=== PATIENT | male | born 1970 | race Caucasian/White ===

== ENCOUNTER 2021-10-11 10:41 | Observation (INO) ==
[2021-10-11] MEDS ORDERED: Naloxone 0.4 MG/ML INJ IVP PRN (11:36)
[2021-10-11] MEDS ORDERED: Ondansetron 4 MG/2 ML VIAL IVP PRN (11:36)
[2021-10-11] MEDS: 0.9 % Sodium Chloride 1,000 ML IVC SCH ×2 (15:59→23:57)
[2021-10-11] MEDS: cefTRIAXone 1,000 MG in 0.9 % Sodium Chloride 10 ML IVP SCH (16:01)
[2021-10-12 05:59] LABS: Basophils % 0.5 %; Eosinophils # 0.5 K/mcL (0.0-0.6); Eosinophils % 7.9 %; Hematocrit 45.4 % (37.5-50.1); Hemoglobin 15.5 g/dL (12.9-16.9); Immature Granulocytes % 0.3 % (0-4); Lymphocytes # 1.6 K/mcL (0.6-4.6); Lymphocytes % 23.9 %; Mean Corpuscular HGB Conc 34.1 g/dL (31.6-35.5); Mean Corpuscular Hemoglobin 29.7 pg (28.0-33.3); Monocytes # 0.5 K/mcL (0.0-1.3); Monocytes % 7.6 %; Platelet Count 153 K/mcL (140-400); Red Blood Count 5.22 M/mcL (4.19-5.50); Red Cell Distribution Width 13.2 % (11.5-14.5); Segmented Neutrophils % 59.8 %; White Blood Count 6.6 K/mcL (4.3-11.1)
[2021-10-12 06:32] LABS: BUN/Creatinine Ratio 13 (6-26); Blood Urea Nitrogen 14 mg/dL (6-20); Calcium 8.5 mg/dL (8.6-10.3); Carbon Dioxide 25 mEq/L (23-29); Chloride 109 mEq/L (98-107); Glucose 86 mg/dL (70-105); Osmolality,Calculated 292 (280-300); Potassium 3.9 mEq/L (3.5-5.1); Sodium 141 mEq/L (136-145); eGFR For African Americans > 60 (> 60); eGFR For Non-African Americans > 60 (> 60)
[2021-10-12] MEDS: 0.9 % Sodium Chloride 1,000 ML IVC SCH ×2 (08:09→15:07)
[2021-10-12] MEDS: cefTRIAXone 1,000 MG in 0.9 % Sodium Chloride 10 ML IVP SCH (08:10)
[2021-10-12] MEDS ORDERED: Ondansetron 4 MG/2 ML VIAL IVP PRN (09:12)
[2021-10-12] MEDS ORDERED: *HR* FentaNYL (PF) 100 MCG/2 ML VIAL IVP PRN (09:12)
[2021-10-12] MEDS ORDERED: Lidocaine -MPF 2% 5 ML VIAL ONE (09:22)
[2021-10-12] MEDS ORDERED: Ondansetron 4 MG/2 ML VIAL ONE (09:22)
[2021-10-12] MEDS ORDERED: *HR* Propofol 200 MG/20 ML VIAL IVP ONE (09:23)
[2021-10-12] MEDS ORDERED: *HR* FentaNYL (PF) 100 MCG/2 ML VIAL ONE ×2 (09:23→10:19)
[2021-10-12] MEDS ORDERED: Iopamidol - 300 50 ML VIAL ONE (09:33)
[2021-10-12 15:26] VITALS: TEMP 97.8
[2021-10-12 18:44] VITALS: BP 158/79; PULSE 65; O2SAT 91
== END 2021-10-12 19:30 | disposition home or self-care (01) ==
LOC: EMEROOARM 10:41 → 3BNU 10:41 → SUATTDRO 12:43 → 3BNU 13:41
PROVIDERS: ADMIT Family Medicine; ATTEND Nurse Practitioner